=== PATIENT | female | born 1970 | race Caucasian/White ===

== ENCOUNTER → 2016-06-03 | Outpatient (CLI) | payer OTHER ==
[~2016-06-03] MED LIST: ASPIRIN 32325 MG/TAB PO; BENTYL 10MG10 MG/CAP PO; LEVOXYL0.025 MG PO; MIRALAX238G PO; NORCO 325 MG-7.1 TAB PO; SYNTHROID0.075 MG/T PO
== END ==
LOC: ZLAB.FHCC 11:18
DX: Z01.89 Encounter for other specified special examinations (principal)